=== PATIENT | male | born 1965 | race Two or more races ===

== ENCOUNTER 2024-02-20 18:15 | Emergency (ER) | payer OTHER ==
[~2024-02-20] VITALS: Ht 160 cm; Wt 70.8 kg
[2024-02-21] MEDS: AMOXICILLIN/CLAVUL 875 MG TAB PO ONE (00:40)
[2024-02-21] MEDS: ceFAZolin IM 1GM/2.5ML STERILE WATER IM ONE (00:40)
[2024-02-21] MEDS: ceFAZolin 1GM VL ONE (00:41)
[2024-02-21] MEDS: TETANUS-DIPTH-ACEL PERTUSSIS 0.5ML SYR Tdap IM ONE (00:41)
[2024-02-21 00:42] VITALS: BP 112/82; TEMP 98.7
[2024-02-21 00:43] VITALS: PULSE 87; RESP 16; O2SAT 98
== END 2024-02-21 02:00 | disposition short-term general hospital (02) ==
LOC: ER 18:15
DX: S51.811A Laceration without foreign body of right forearm, initial encounter (principal); S51.851A Open bite of right forearm, initial encounter; M24.531 Contracture, right wrist; W54.0XXA Bitten by dog, initial encounter; Y93.89 Activity, other specified; Y92.89 Other specified places as the place of occurrence of the external cause; Y99.8 Other external cause status
CPT/HCPCS: 90471; 90715; 96372; 99285; J0690

== ENCOUNTER 2024-11-15 08:09 | Day surgery (SDC) | payer OTHER ==
[~2024-11-15] VITALS: Ht 160 cm; Wt 76.2 kg
[~2024-11-15 08:09] MED LIST: ALLO300T2 PO; AMLO1TAB22 PO; ASPI1TAB20 PO; GABA-1250 PO; METO-289 PO; PIO30T GT; SITA50TA28 PO; TELM80TA PO
[2024-11-15] MEDS ORDERED: LIDOCAINE 1% INJ PF 5ML AMP ONE (09:32)
[2024-11-15] MEDS ORDERED: PROPOFOL 10 MG/ML 20 ML IV ONE ×2 (09:32→09:57)
[2024-11-15 10:03] VITALS: PULSE 103; RESP 22
--- NOTE | 2024-11-15 10:03 | DVHHP2 ---
GI H&P Pre-Op Assessment Date: 11/15/24 Chief complaint: + FIT test HPI: per clinic note Past medical history: per clinic note Past surgical history: per clinic note Family history: per clinic note Physical exam: General: NAD, AAOX3 HEENT: PERRL, no scleral icterus, normal hearing, gums without lesions or bleeding, oropharynx clear without erythema or exudate. Neck: Supple without enlargement of the thyroid, or lymphadenopathy. Chest: Normal size and shape, no tenderness, lung ayala clear to auscultation and percussion, nonlabored breathing. Heart: RRR, no murmur Abdomen: non-distended, no tenderness to palpation, +BS, no hepatosplenomegaly Extremities: no edema Neurological: CN II-XII intact, sensation intact in all extremities, 5+ strength in all extremities Skin: No rashes, No jaundice Assessment: - + FIT test Plan: - Colonoscopy - Risks (bleeding, infection, perforation, reaction to sedation medications and cardiopulmonary arrest) and benefit of the procedure were explained to patient. Patient agrees to undergo the procedure. PUJA MERCADO MD Nov 15, 2024 10:03
--- NOTE | 2024-11-15 10:05 | DVHOP2 ---
Operative Report DATE OF OPERATION: 11/15/24 PROCEDURE: Colonoscopy. PREOPERATIVE INDICATION: The patient is a 58 -year-old male undergoing colonoscopy for positive FIT test. POSTOPERATIVE DIAGNOSES: 1. 6 mm left colon polyp removed with hot snare and retrieved. 2. Mild diffuse diverticulosis. PROCEDURE PERFORMED BY: Preston Perez M.D. SCOPE: Olympus videocolonoscope. ASA CLASS: 3 PREOPERATIVE MEDICATIONS: Tk GRICELDA PROCEDURE IN DETAIL: After obtaining an informed consent, the patient was placed on left lateral decubitus position. He was then sedated with the above medications. A rectal examination was performed that was normal. The colonoscope was then passed through the anus into the rectosigmoid and through the descending, transverse, and ascending colon up to the cecum with visualization of the appendiceal orifice, base of the cecum and the ileocecal valve. A 6 mm left colon polyp removed with hot snare and retrieved. There was mild diffuse diverticulosis. The colonoscope was then withdrawn. The patient tolerated the procedure well without difficulty. WITHDRAWAL TIME: 6 minutes QUALITY OF THE PREP: O'Brien Bowel Prep score: 7 COMPLICATIONS : None SPECIMENS: Colon polyp DISPOSITION: D/C to home PLAN: 1. Repeat colonoscopy base on biopsy result PRESTON PEREZ MD Nov 15, 2024 10:05
--- NOTE | 2024-11-15 10:05 | DVHDS2 ---
Physician Discharge Progress N Final Diagnosis: colon polyp, diverticulosis Operations or Procedures: Operations or Procedures colonoscopy with snare polypectomy Condition on Discharge: Good Disposition: Home Discharge Instructions: Diet: Regular Activity: No Restrictions, As Tolerated Medications: resume previous home medications Follow Up Care: Discharge Statement: "Patient was advised to return to the ER or call 911 if any headaches, dizziness, shortness of breath, chest pain, abdominal pain, bleeding, fevers, or worsening of medical condition. Patient was counseled about treatment plan, medications, possible side effects, patientverbalized understanding. All questions were answered to the best of my ability. This discharge took greater then 30 minutes in planning, reviewing documentation, counseling the patient, and discussing with other team members." PUJA MERCADO MD Nov 15, 2024 10:05
[2024-11-15 10:10] VITALS: RESP 20
[2024-11-15 10:25] VITALS: BP 131/75; PULSE 101; RESP 26; RESP 27; O2SAT 98
== END 2024-11-15 10:42 | disposition home or self-care (01) ==
LOC: GI 08:09
PROVIDERS: ATTEND Internal Medicine Gastroenterology
DX: R19.5 Other fecal abnormalities (principal); D12.6 Benign neoplasm of colon, unspecified; K57.30 Diverticulosis of large intestine without perforation or abscess without bleeding; I10 Essential (primary) hypertension; E11.9 Type 2 diabetes mellitus without complications; M19.90 Unspecified osteoarthritis, unspecified site; M10.9 Gout, unspecified; F17.210 Nicotine dependence, cigarettes, uncomplicated; E66.01 Morbid (severe) obesity due to excess calories; Z68.29 Body mass index [BMI] 29.0-29.9, adult; Z79.899 Other long term (current) drug therapy; Z86.73 Personal history of transient ischemic attack (TIA), and cerebral infarction without residual deficits; Z90.49 Acquired absence of other specified parts of digestive tract; Z98.890 Other specified postprocedural states
CPT/HCPCS: 45385; 82962; 88305; J2704; J7030